=== PATIENT | female | born 2000 | race Hispanic/Latino ===

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

== ENCOUNTER 2020-03-11 23:31 | Emergency (ER) | payer OTHER, SELFPAY ==
[2020-03-11] MEDS ORDERED: Fentanyl 100 MCG/2 ML VIAL ONE (23:47)
[2020-03-11] MEDS ORDERED: Ondansetron ODT 4 MG TAB ONE (23:47)
[2020-03-11] MEDS ORDERED: Ondansetron PF 4 MG/2 ML Vial ONE (23:49)
[2020-03-12 00:01] LABS: BHCG - Serum Negative (NEGATIVE); Pregs Control Background? CLEAR/WHITE (CLR/WHITE); Pregs Control Bar Appear? YES (CONTROL BAR)
[2020-03-12] MEDS ORDERED: Crotalidae Polyvalent Antivenin 1 GM VIAL ONE (00:11)
[2020-03-12 00:13] LABS: ALT (SGPT) 11 U/L (8-55); AST (SGOT) 16 U/L (5-34); Albumin 4.7 g/dL (3.5-5.0); Alkaline Phosphatase 80 U/L (40-100); Anion Gap 20 mmol/L (10-20); BUN (Urea Nitrogen) 11 mg/dL (7.0-18.7); Bilirubin, Total Less than 0.2 mg/dL (0.2-1.2); CK (CPK) 65 U/L (29-168); Calc. Creatinine Clearance 0 mL/min (70-130); Calcium 9.8 mg/dL (7.8-10.44); Carbon Dioxide 16 mmol/L (22-29); Chloride 109 mmol/L (98-107); Estimated GFR-MDRD Greater than 90; Globulin 3.5 g/dL (2.4-3.5); Glucose 87 mg/dL (70-105); Potassium 3.7 mmol/L (3.5-5.1); Protein, Total 8.2 g/dL (6.0-8.3); Sodium 141 mmol/L (136-145)
[2020-03-12] MEDS ORDERED: Morphine 4 MG/ML VIAL ONE ×2 (00:19→01:16)
[2020-03-12] MEDS ORDERED: Adacel (T-DAP) 0.5 ML SYRINGE ONE (00:19)
[2020-03-12] MEDS ORDERED: diphenhydrAMINE 50 MG/ML VIAL ONE (00:19)
[2020-03-12 00:21] LABS: PTT 33.2 SEC (22.9-36.1); Prothrombin Time 13.5 SEC (12.0-14.7)
[2020-03-12] MEDS ORDERED: Ondansetron PF 4 MG/2 ML Vial ONE (00:29)
[2020-03-12 00:31] LABS: #Basophils 0.2 thou/uL (0.0-0.2); #Eosinphils 0.1 thou/uL (0.0-0.7); #Lymphocytes 3.1 thou/uL (1.20-3.40); #Monocytes 0.6 thou/uL (0.11-0.59); #Neutrophils 6.8 thou/uL (1.40-6.50); %Basophils 1.6 % (0.0-1.0); %Lymphocytes 28.6 % (28.0-48.0); %Monocytes 5.9 % (0.0-4.0); Anisocytosis SLIGHT = 6-15 cells (100X) (0-5/hpf); Hemoglobin 11.8 g/dL (12.0-16.0); Hypochromia SLIGHT = 6-15 cells (100X) (0-5/hpf); MDiff Complete? YES; Mean Corpuscular HGB CONC 31.1 g/dL (32.0-36.0); Mean Corpuscular Hemoglobin 24.8 pg (25.0-35.0); Mean Corpuscular Volume 79.6 fL (78.0-98.0); Mean Platelet Volume 7.2 fL (7.4-10.4); Ovalocytes SLIGHT = 2-5 cells (100X) (0-1/hpf); Platelet Count 357 thou/uL (130-400); Platelet Morphology Comment Appears Adequate; RBC Distribution Width 14.5 % (11.5-14.5); Red Blood Cell (RBC) Count 4.75 mill/uL (4.00-5.20); Small Platelets SLIGHT; White Blood Cell (WBC) Count 10.8 thou/uL (4.8-10.8)
== END 2020-03-12 01:09 | disposition home or self-care (01) ==
LOC: BURERS 23:31
DX: T63.001A Toxic effect of unspecified snake venom, accidental (unintentional), initial encounter (principal); Z23 Encounter for immunization
CPT/HCPCS: 80053; 82550; 84703; 85025; 85384; 85610; 85730; 90471; 90715; 96365; 96375; 96376; J0840; J1200; J2270; J2405; J3010; Q0162